=== PATIENT | female | born 2000 | race Caucasian/White ===

== ENCOUNTER 2019-09-30 12:00 | Emergency (ER) | payer MEDICAID ==
[~2019-09-30] VITALS: Ht 162.6 cm; Wt 67.0 kg
[~2019-09-30 12:00] MED LIST: HYDR-4383 PO
[2019-09-30 12:07] VITALS: BP 130/71
[2019-09-30] MEDS ORDERED: acetaminophen 325mg tablet PO ONE (12:55)
[2019-09-30] MEDS ORDERED: BENZ-16 PO (12:57)
== END 2019-09-30 13:14 | disposition home or self-care (01) ==
LOC: ER 12:01
DX: B34.9 Viral infection, unspecified (principal)
CPT/HCPCS: 99283

== ENCOUNTER 2020-03-19 11:42 | Emergency (ER) | payer MEDICAID ==
[~2020-03-19] VITALS: Ht 160 cm; Wt 75.0 kg
[2020-03-19] MEDS ORDERED: normal saline 1000ml 1,000 ML IV ONE (12:45)
[2020-03-19 13:01] LABS: CLARITY,URINE CLOUDY (Clear); COLOR,URINE YELLOW (Yellow); GLUCOSE, URINE NEGATIVE (Neg); KETONES,URINE >=80 mg/dl (Neg); LEUKOCYTE ESTERASE ,URINE NEGATIVE (Neg); NITRITES, URINE NEGATIVE (Neg); OCCULT BLOOD,URINE SMALL (Neg); PROTEIN,URINE 30 mg/dl (Neg)
[2020-03-19 13:11] LABS: UA COLLECTION TYPE CLN CATCH MIDSTREAM
[2020-03-19 13:12] LABS: MUCUS STRANDS MANY /LPF (Neg); SQUAMOUS EPITHELIAL CELL,UR MANY /LPF (FEW)
[2020-03-19 13:13] LABS: BACTERIA,URINE FEW /HPF (Neg); RBC,URINE 0-2 /HPF (0-2); WBC,URINE 0-4 /HPF (0-4)
[2020-03-19 13:55] VITALS: BP 112/88
== END 2020-03-19 14:19 | disposition home or self-care (01) ==
LOC: ER 11:42
DX: O21.8 Other vomiting complicating pregnancy (principal); R10.9 Unspecified abdominal pain; Z3A.01 Less than 8 weeks gestation of pregnancy; Z79.899 Other long term (current) drug therapy
CPT/HCPCS: 81001; 99283